=== PATIENT | female | born 2000 | race Hispanic/Latino ===

== ENCOUNTER 2024-11-29 11:04 | Day surgery (SDC) | payer BC ==
[2024-11-29 11:46] VITALS: BMI 31.7
[2024-11-29] MEDS ORDERED: hydrALAZINE 20 MG/ML VIAL SLOW IVP PRN (12:07)
[2024-11-29 13:33] LABS: Glucose, Urine (Dipstick) 50 mg/dL (Negative); Leukocyte Negative (Negative); Protein, Urine (Dipstick) 15 mg/dl (Neg-Trace); Specific Gravity, Urine 1.010 (1.005-1.030)
[2024-11-29 13:45] LABS: CAUTI Indications for Culture Pregnancy; RBC/HPF 0-3 HPF (0-3); WBC/HPF 0-3 HPF (0-3)
[2024-11-29 13:46] LABS: Bacteria/HPF 1+ HPF (None Seen)
[2024-11-29 13:47] LABS: Urine Culture Reflex Yes Yes
== END 2024-11-29 14:20 | disposition home or self-care (01) ==
LOC: CSHLD/OP 11:04
PROVIDERS: ATTEND Student in an Organized Health Care Education/Training Program
DX: O99.891 Other specified diseases and conditions complicating pregnancy (principal); R10.2 Pelvic and perineal pain; Z3A.36 36 weeks gestation of pregnancy; Z79.899 Other long term (current) drug therapy
CPT/HCPCS: 81001; 87086; 99284

== ENCOUNTER 2024-12-07 09:20 | Day surgery (SDC) | payer BC ==
[2024-12-07] MEDS ORDERED: hydrALAZINE 20 MG/ML VIAL SLOW IVP PRN (10:12)
[2024-12-07 10:26] LABS: Glucose, Urine (Dipstick) Normal (Negative); Leukocyte 25 (Negative); Protein, Urine (Dipstick) 15 mg/dl (Neg-Trace); Specific Gravity, Urine 1.010 (1.005-1.030)
[2024-12-07 10:37] LABS: CAUTI Indications for Culture Pregnancy; RBC/HPF None Seen HPF (0-3); WBC/HPF 0-3 HPF (0-3)
[2024-12-07 10:38] LABS: Bacteria/HPF Rare-Few HPF (None Seen); Mucous/LPF 1+ LPF (<2+)
[2024-12-07 10:39] LABS: Urine Culture Reflex Yes Yes
== END 2024-12-07 12:55 | disposition home or self-care (01) ==
LOC: CSHLD/OP 09:20
PROVIDERS: ATTEND Family Medicine
DX: Z03.71 Encounter for suspected problem with amniotic cavity and membrane ruled out (principal); O23.593 Infection of other part of genital tract in pregnancy, third trimester; B96.89 Other specified bacterial agents as the cause of diseases classified elsewhere; O32.1XX0 Maternal care for breech presentation, not applicable or unspecified; Z3A.36 36 weeks gestation of pregnancy
CPT/HCPCS: 81001; 87086; 87480; 87510; 87660; 99285

== ENCOUNTER 2024-12-24 10:06 | Inpatient (IN) | payer BC ==
[2024-12-21 11:37] LABS: Hematocrit 34.4 % (34.9-44.5); Hemoglobin 11.6 g/dL (12.0-15.5); Platelet Count 237 10x3/uL (150-450)
[2024-12-21 12:12] LABS: Syphilis Antibody Index 0.04 S/CO (<1.00 Non-Reactive)
[2024-12-21 12:15] LABS: HIV (1/2) Antibody/Antigen Non-Reactive (NonReactive); HIV 1/2 INDEX 0.16 S/CO (<1.00); Hep B Surf Ag Non-Reactive S/CO (NonReactive)
[2024-12-24] MEDS ORDERED: Famotidine/PF 20 mg/2ml Vial SLOW IVP PRN (10:37)
[2024-12-24] MEDS ORDERED: hydrALAZINE 20 MG/ML VIAL SLOW IVP PRN ×2 (10:37→12:48)
[2024-12-24] MEDS ORDERED: Ondansetron PF 4 MG/2 ML Vial IVP PRN ×4 (10:37→13:42)
[2024-12-24] MEDS ORDERED: Bicitra 30 ML UDCUP PO PRN (10:37)
[2024-12-24] MEDS ORDERED: Carboprost 250 MCG/ML AMP IM PRN (10:38)
[2024-12-24] MEDS ORDERED: Methylergonovine 0.2 MG/ML VIAL IM PRN ×2 (10:38→12:48)
[2024-12-24] MEDS ORDERED: Tranexamic Acid 1,000 MG/10 ML VIAL IVP PRN (10:38)
[2024-12-24] MEDS ORDERED: Acetaminophen 500 MG TAB PO PRN (10:38)
[2024-12-24] MEDS ORDERED: Diphenoxylate HCl/Atropine Tablet PO PRN ×2 (10:38)
[2024-12-24] MEDS ORDERED: Oxytocin 30 units/NS 500 ML 500 ML IV SCH ×2 (10:45→13:00)
[2024-12-24] MEDS ORDERED: diphenhydrAMINE 25 MG CAP PO PRN (12:48)
[2024-12-24] MEDS ORDERED: Methylergonovine 0.2 MG TAB PO PRN (12:48)
[2024-12-24] MEDS ORDERED: Boostrix 0.5 ML (Tdap) VIAL (>/=7 yrs of age) IM ONE (12:48)
[2024-12-24] MEDS ORDERED: Bisacodyl 10 MG SUPP PR PRN (12:48)
[2024-12-24] MEDS ORDERED: Simethicone Chewable 80 MG TAB PO PRN (12:48)
[2024-12-24] MEDS ORDERED: Lanolin Ointment 7 GM TUBE TOP PRN (12:48)
[2024-12-24] MEDS ORDERED: Meperidine HCl/PF 25 MG (1 mL) VIAL SLOW IVP PRN (13:42)
[2024-12-24] MEDS ORDERED: diphenhydrAMINE 50 MG/ML VIAL IVP PRN (13:42)
[2024-12-24] MEDS ORDERED: Ketorolac Tromethamine 30 MG (1 mL) VIAL IVP SCH (13:45)
[2024-12-24] MEDS ORDERED: Communication Order-Pharmacy FS SCH (13:45)
[2024-12-24] MEDS: Ketorolac Tromethamine 30 MG (1 mL) VIAL ONE (18:26)
[2024-12-24] MEDS: Ondansetron PF 4 MG/2 ML Vial ONE (18:26)
[2024-12-24] MEDS: Dexamethasone 10 MG/ML VIAL ONE (18:27)
[2024-12-24] MEDS: Oxytocin 10 UNITS/ML VIAL ONE ×2 (18:27→18:28)
[2024-12-24] MEDS: Erythromycin Base 0.5% Oint 1 GM TUBE ONE (18:28)
[2024-12-24] MEDS ORDERED: Ibuprofen 800 MG TAB PO SCH (18:30)
[2024-12-24] MEDS: Ketorolac Tromethamine 30 MG (1 mL) VIAL IVP SCH (20:53)
[2024-12-25 04:14] LABS: Hematocrit 31.3 % (34.9-44.5); Hemoglobin 10.8 g/dL (12.0-15.5); Mean Corpuscular Hemoglobin 30.8 pg (27.0-33.0); Mean Corpuscular Volume 89.2 fL (81.6-98.3); Platelet Count 244 10x3/uL (150-450); Red Blood Cell (RBC) Count 3.51 10x6/uL (3.90-5.03); White Blood Cell (WBC) Count 16.66 10x3/uL (3.5-10.5)
[2024-12-25] MEDS: Ferrous Sulfate 325 MG TAB PO SCH (04:44)
[2024-12-25] MEDS: Acetaminophen 325 MG TAB PO PRN (14:34)
[2024-12-25] MEDS: HYDROcodone/Acetaminophen 5/325 mg Tablet PO PRN (14:36)
[2024-12-26] MEDS: Ibuprofen 800 MG TAB PO SCH (01:45)
[2024-12-26 19:26] VITALS: BP 95/57; TEMP 98.7
== END 2024-12-26 17:35 | disposition home or self-care (01) | DRG 788 ==
LOC: CSHLD 10:06 → CSHPP 15:19
PROVIDERS: ADMIT Family Medicine; ATTEND Family Medicine
PROC: 10D00Z1 Extraction of Products of Conception, Low, Open Approach (ICD-10-PCS; principal; 2024-12-24)
PROC: 4A1HXCZ Monitoring of Products of Conception, Cardiac Rate, External Approach (ICD-10-PCS; 2024-12-24)
DX: O32.1XX0 Maternal care for breech presentation, not applicable or unspecified (principal); O99.02 Anemia complicating childbirth; Z3A.39 39 weeks gestation of pregnancy; Z37.0 Single live birth; Z14.1 Cystic fibrosis carrier; Z79.899 Other long term (current) drug therapy
CPT/HCPCS: 36415; 51702; 85014; 85018; 85027; 85049; 86780; 86850; 86900; 86901; 87340; 87389; J1100; J1885; J2274; J2405; J2550; J2590; J3010